=== PATIENT | male | born 1985 | race African-American/Black ===

== ENCOUNTER 2022-03-03 23:11 | Emergency (ER) | payer MEDICAID ==
[~2022-03-03] VITALS: Ht 177.8 cm; Wt 80.0 kg
[2022-03-03 23:22] VITALS: BP 127/87
[2022-03-04 02:13] LABS: CLARITY URINE TURBID (CLEAR); COLOR URINE DARK YELLOW (YELLOW); KETONES URINE NEGATIVE (NEGATIVE); LEUKOCYTE ESTERASE URINE 3+ (NEGATIVE); NITRITE URINE NEGATIVE (NEGATIVE); OCCULT BLOOD URINE 1+ (NEGATIVE); PH URINE 5.5 (4.5-8.0); PROTEIN URINE 1+ (NEGATIVE); SPECIFIC GRAVITY URINE 1.028 (1.005-1.030)
== END 2022-03-04 02:00 | disposition left against medical advice (07) ==
LOC: ER 23:11
DX: Z53.21 Procedure and treatment not carried out due to patient leaving prior to being seen by health care provider (principal)
CPT/HCPCS: 81003

== ENCOUNTER 2023-02-08 17:35 | Emergency (ER) | payer MEDICAID ==
[~2023-02-08] VITALS: Ht 177.8 cm; Wt 77.0 kg
[2023-02-08 17:39] VITALS: TEMP 99; O2SAT 99
[2023-02-08] MEDS ORDERED: PIPERACILLIN/TAZOBACTAM 3.375GM/50ML PREMIX IV ONE (18:00)
[2023-02-08] MEDS ORDERED: VANCOMYCIN 1G PREMIX 200 ML IV SCH (18:00)
[2023-02-08] MEDS ORDERED: PIPERACILLIN/TAZ 3.375G PREMIX 50 ML IV NR (18:15)
[2023-02-08 21:15] LABS: BASOPHILS % 0.4 % (0.0-2.0); EOSINOPHILS % 3.1 % (0.0-5.0); HEMATOCRIT. 37.9 % (42.0-52.0); HEMOGLOBIN. 12.7 g/dL (14.0-18.0); LYMPHOCYTES % 39.6 % (20.0-50.0); MEAN CORPUSCULAR HEMOGLOBIN 27.6 pg (28.0-32.0); MEAN CORPUSCULAR HGB CONC 33.5 g/dL (31.0-37.0); MEAN CORPUSCULAR VOLUME 82.2 fL (80.0-94.0); MONOCYTES % 10.8 % (2.0-8.0); NEUTROPHILS % 46.1 % (40.0-76.0); PLATELET 183 x1000/uL (130-400); RED BLOOD CELL COUNT 4.61 mill/uL (4.7-6.1); RED CELL DISTRIBUTION WIDTH 13.1 % (11.6-14.6); WHITE BLOOD COUNT 5.1 x1000/uL (4.5-11.0)
[2023-02-08 21:31] LABS: CHLORIDE 108 mEq/L (98-107); INDEX HEMOLYSI 1 (1-3); INDEX ICTERIC 1 (1-4); INDEX LIPEMIC 1 (1-3); POTASSIUM 3.4 mEq/L (3.5-5.1); SODIUM 139 mEq/L (136-145)
[2023-02-08 21:41] LABS: ALANINE AMINOTRANSFERASE 24 IU/L (13-61); ALBUMIN 3.5 g/dL (3.4-5.0); ASPARTATE AMINOTRANSFERASE 29 IU/L (15-37); BILIRUBIN TOTAL 0.8 mg/dL (0.1-1.0); CALCIUM 8.6 mg/dL (8.5-10.1); CARBON DIOXIDE 27 mEq/L (21-32); CREATININE 0.9 mg/dL (0.6-1.3); GLUCOSE 140 mg/dL (70-105); PROTEIN TOTAL 7.5 g/dL (6.0-8.3); UREA NITROGEN BLOOD 11 mg/dL (7-21)
[2023-02-08 21:53] LABS: ERYTHROCYTE SEDIMENTATION RATE 4 mm/hr (0-15)
[2023-02-09] MEDS ORDERED: KETOROLAC 15MG/ML VIAL IV ONE
[2023-02-09] MEDS ORDERED: MORPHINE SULFATE 4 MG/ML CPJ (NOT FOR IM USE) IV ONE
[2023-02-09 00:56] VITALS: BP 142/94; PULSE 90; RESP 16
[2023-02-09] MEDS ORDERED: CEPH500T MT (01:45)
[2023-02-09] MEDS ORDERED: SULF1TAB48 MT (01:45)
== END 2023-02-09 01:43 | disposition left against medical advice (07) ==
LOC: ER 17:35
DX: M65.9 Synovitis and tenosynovitis, unspecified (principal); F17.200 Nicotine dependence, unspecified, uncomplicated
CPT/HCPCS: 99284; 96365; 96366; 80053; 85025; 85651; 36415; 73130; 96368; 96375; J2543; J3370; J1885; J2270